=== PATIENT | male | born 1990 | race Caucasian/White ===

== ENCOUNTER 2018-08-19 14:18 | Emergency (ER) | payer MEDICAID ==
[2018-08-19 14:28] VITALS: O2SAT 100
--- NOTE | 2018-08-19 14:44 | ED PDOC ---
HPI: Chest Pain Time Seen by Provider: 08/19/18 14:35 Chief Complaint (Nursing): Chest Pain Chief Complaint (Provider): Chest Pain History Per: Patient History/Exam Limitations: no limitations Onset/Duration Of Symptoms: Days (x3) Current Symptoms Are (Timing): Still Present Additional Complaint(s): Patient is a 28 y/o male with no significant PMx who presents to the ED for evaluation of left-sided chest pain ongoing for the past three days. 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 Patient also reports of left-sided back pain and left arm weakness. Patient denies difficulty breathing and shortness of breath. PCP: None Provided Past Medical History Reviewed: Historical Data, Nursing Documentation, Vital Signs Vital Signs: Last Vital Signs Temp 97.7 F 08/19/18 14:23 Pulse 89 08/19/18 14:23 Resp 17 08/19/18 14:23 BP 141/73 08/19/18 14:23 Pulse Ox 100 08/19/18 14:23 - Medical History PMH: No Chronic Diseases - Surgical History Surgical History: No Surg Hx - Family History Family History: States: Unknown Family Hx - Social History Current smoker - smoking cessation education provided: Yes (socially) - Immunization History Hx Tetanus Toxoid Vaccination: No Hx Influenza Vaccination: No Hx Pneumococcal Vaccination: No - Home Medications Home Medications: Ambulatory Orders Medication Instructions Recorded Acetaminophen/Butalbital/Caf 1 tab PO 03/31/16 [Fioricet] Amoxicillin/Clavulanate [Augmentin 1 tab PO 03/31/16 875 MG-125 MG] Ibuprofen [Motrin] 600 mg PO TID PRN #30 tab 03/31/16 RX: Meclizine [Meclizine*] 25 mg PO TID #6 tab 03/31/16 RX: Ibuprofen [Motrin Tab] 600 mg PO Q8 PRN #30 tab 08/19/18 - Allergies Allergies/Adverse Reactions: Allergies Allergy/AdvReac Type Severity Reaction Status Date / Time No Known Allergies Allergy Verified 03/31/16 16:22 YANNI Risk Score for UA/NSTEMI - YANNI Risk Score Age > 64: NO 3 or more CAD Risk Factors: NO Known CAD (Stenosis greater than 50%): NO Aspirin use in past 7 days: NO Severe Angina: NO EKG ST changes greater than 0.5mm: NO Positive Cardiac Marker: NO YANNI Score: 0 Risk %: 5% Wells Criteria for PE - Wells Criteria for Pulmonary Embolism Clinical Signs and Symptoms of DVT: No P.E is #1 Diagnosis, or Equally Likely: No Heart Rate >100: No Immobilization at least 3 days;Surgery previous 4 weeks: No Previous, objectively diagnosed PE or DVT: No Hemoptysis: No Malignancy w/treatment within 6 months, or palliative: No Total Score: 0 Review of Systems ROS Statement: Except As Marked, All Systems Reviewed And Found Negative Cardiovascular: Positive for: Chest Pain (left-sided; sharp, burning, and vibrational) Respiratory: Negative for: Shortness of Breath Gastrointestinal: Negative for: Other (difficulty breathing) Musculoskeletal: Positive for: Arm Pain (left arm weakness), Back Pain (left- sided) Physical Exam - Reviewed Nursing Documentation Reviewed: Yes Vital Signs Reviewed: Yes - Physical Exam Appears: Positive for: Non-toxic, No Acute Distress Head Exam: Positive for: ATRAUMATIC, NORMAL INSPECTION, NORMOCEPHALIC Skin: Positive for: Normal Color, Warm, Dry Eye Exam: Positive for: EOMI, Normal appearance, PERRL ENT: Positive for: Normal ENT Inspection Neck: Positive for: Normal, Painless ROM, Supple Cardiovascular/Chest: Positive for: Regular Rate, Rhythm. Negative for: Murmur Respiratory: Positive for: Normal Breath Sounds. Negative for: Respiratory Dist ress Gastrointestinal/Abdominal: Positive for: Normal Exam, Soft. Negative for: Tenderness Back: Positive for: Normal Inspection. Negative for: L CVA Tenderness, R CVA Tenderness, Vertebral Tenderness Extremity: Positive for: Normal ROM. Negative for: Pedal Edema, Deformity Neurologic/Psych: Positive for: Alert, Oriented. Negative for: Motor/Sensory Deficits - Laboratory Results Result Diagrams: 08/19/18 15:00 08/19/18 15:00 - ECG ECG Rhythm: Positive for: Normal QRS, Normal ST Segment, Sinus Rhythm Rate: 99 O2 Sat by Pulse Oximetry: 100 (RA) Pulse Ox Interpretation: Normal Medical Decision Making Medical Decision Making: Time: 1441 Impression: Chest Pain DDx includes but not limited to ACS, PE, costochondritis, and musculoskeletal pain. r/o PNX. Plan: - EKG - BMP - Drug Screen, Urine - Troponin I - CBC - CXR - Masseur/Masseuse - reevaluation 1500 Patient is being signed out by me to Carolyn Mustafa MD pending Xray chest, labs, and reevaluation. ------ Scribe Attestation: Documented by Ant Roceh, acting as a scribe for Netta Carbajal MD. Provider Scribe Attestation: All medical record entries made by the Scribe were at my direction and personally dictated by me. I have reviewed the chart and agree that the record accurately reflects my personal performance of the history, physical exam, medical decision making, and the department course for this patient. I have also personally directed, reviewed, and agree with the discharge instructions and disposition. Scribe Attestation: Documented by Alis Jerez, acting as a scribe for Netta Carbajal MD. Provider Scribe Attestation: All medical record entries made by the Scribe were at my direction and personally dictated by me. I have reviewed the chart and agree that the record accurately reflects my personal performance of the history, physical exam, medical decision making, and the department course for this patient. I have also personally directed, reviewed, and agree with the discharge instructions and disposition. Disposition - Clinical Impression Clinical Impression: Chest pain - Patient ED Disposition Is Patient to be Admitted: Transfer of Care Counseled Patient/Family Regarding: Studies Performed, Diagnosis - Disposition Disposition: Transfer of Care Disposition Time: 15:00 Condition: STABLE Additional Instructions: PLEASE FOLLOW UP WITH YOUR DOCTOR THIS WEEK FOR FURTHER EVALUATION Prescriptions: RX: Ibuprofen [Motrin Tab] 600 mg PO Q8 PRN #30 tab PRN Reason: Pain, Moderate (4-7) Instructions: Chest Pain That Is Not Caused by the Heart (DC), Costochondritis (DC)
--- NOTE | 2018-08-19 15:10 | ED PDOC ---
- Laboratory Results Result Diagrams: 08/19/18 15:00 08/19/18 15:00 - ECG O2 Sat by Pulse Oximetry: 100 (RA) Medical Decision Making Medical Decision Makin:00 Patient is being signed out to me by Netta Carbajal MD pending ER workup and reassessment. 1600 Labs unremarkable Pt's repeat EKG normal CXR normal DW pt findings and plan of care. NSAIDs for possible costochondritis and followup pmd Scribe Attestation: Documented by Alis Jerez, acting as a scribe for Carolyn Mustafa MD. Provider Scribe Attestation: All medical record entries made by the Scribe were at my direction and personally dictated by me. I have reviewed the chart and agree that the record accurately reflects my personal performance of the history, physical exam, medical decision making, and the department course for this patient. I have also personally directed, reviewed, and agree with the discharge instructions and disposition Disposition Counseled Patient/Family Regarding: Studies Performed, Diagnosis, Need For Followup, Rx Given - Clinical Impression Clinical Impression: Chest pain, Headache - POA Present On Arrival: None - Disposition Disposition: Routine/Home Disposition Time: 16:46 Condition: STABLE Additional Instructions: PLEASE FOLLOW UP WITH YOUR DOCTOR THIS WEEK FOR FURTHER EVALUATION Prescriptions: Ibuprofen [Motrin Tab] 600 mg PO Q8 PRN #30 tab PRN Reason: Pain, Moderate (4-7) Instructions: Chest Pain That Is Not Caused by the Heart (DC), Costochondritis (DC)
[2018-08-19 15:12] LABS: BASO % 0.4 % (0.0-2.0); EOS # 0.1 K/uL (0.0-0.7); EOS % 1.7 % (0.0-4.0); LYMPH # 1.4 K/uL (1.0-4.3); LYMPH % 32.3 % (20.0-40.0); MEAN CELL VOLUME 85.7 fl (80.0-94.0); MEAN CORPUSCULAR HEMOGLOBIN 28.7 pg (27.0-31.0); MEAN CORPUSCULAR HGB CONC 33.5 g/dL (33.0-37.0); MONO # 0.6 K/uL (0.0-0.8); MONO % 12.7 % (0.0-10.0); NEUT # 2.4 K/uL (1.8-7.0); NEUT % 52.9 % (50.0-75.0); NRBC % 0.1 % (0.0-0.0); RBC 5.24 Mil/uL (4.40-5.90); RED CELL DISTRIBUTION WIDTH 12.6 % (11.5-14.5); WHITE BLOOD COUNT 4.5 K/uL (4.8-10.8)
[2018-08-19 15:22] LABS: BLOOD UREA NITROGEN 11 mg/dl (9-20); CALCIUM 10.1 mg/dL (8.4-10.2); GFR NON-AFRICAN AMERICAN > 60
[2018-08-19 15:50] LABS: BARBITURATES, UR NEGATIVE (NEGATIVE); BENZODIAZEPINES, UR NEGATIVE (NEGATIVE); OPIATES, UR NEGATIVE (NEGATIVE); PHENCYCLIDINE, UR NEGATIVE (NEGATIVE)
--- NOTE | 2018-08-19 15:56 | RAD ---
Date of service: 08/19/2018 HISTORY: chest pain COMPARISON: Chest radiograph dated 03/31/2016. TECHNIQUE: Chest PA and lateral FINDINGS: LUNGS: No active pulmonary disease. PLEURA: No significant pleural effusion identified. No pneumothorax apparent. CARDIOVASCULAR: No aortic atherosclerotic calcification present. Normal cardiac size. No pulmonary vascular congestion. OSSEOUS STRUCTURES: No significant abnormalities. VISUALIZED UPPER ABDOMEN: Normal. OTHER FINDINGS: None. IMPRESSION: No active disease.
[2018-08-19 17:42] VITALS: BP 137/83; RESP 18; TEMP 97.9
--- NOTE | 2018-08-20 09:10 | CARD ---
APPROVED REPORT Date of service: 08/19/2018 EKG Measurement Heart [id number] 118P43 [id number] <Conclusion> Normal sinus rhythm Normal ECG
--- NOTE | 2018-08-20 09:13 | CARD ---
APPROVED REPORT Date of service: 08/19/2018 EKG Measurement Heart [id number] [id number] <Conclusion> Sinus rhythm with marked sinus arrhythmia Normal Electrocardiogram
[2018-08-20 14:45] VITALS: PULSE 99
== END 2018-08-19 17:05 | disposition home or self-care (01) ==
LOC: H.ER 14:18
DX: R07.9 Chest pain, unspecified (principal)

== ENCOUNTER 2018-08-22 11:29 | Emergency (ER) | payer MEDICAID ==
[2018-08-22 11:39] VITALS: BP 135/82; PULSE 82; RESP 17; TEMP 98.5; O2SAT 99; BMI 22.4
--- NOTE | 2018-08-22 13:53 | ED PDOC ---
HPI: Chest Pain Time Seen by Provider: 08/22/18 12:13 Chief Complaint (Nursing): Chest Pain History Per: Patient eddy returns to the ED 4 days after initial evaluation for the same complaint. The left lower lateral chest wall started 5-6 days ago. He recalls now that he had to do someting heavy at work and since then has noticed pain. He is concerned that he also senses a numbness in the left upper chest. Today's pain has lasted 3-4 hours before he came to the ER. He noticed it when he woke up from sleep at 9am this morning. After his initial visit to the ER he was told to take ibuprofen 600mg as needed. He was seen by his PMD the next day who told him the same. He denies shortness of breath, nausea, vomiting, dizziness.) Past Medical History Reviewed: Historical Data, Nursing Documentation, Vital Signs Vital Signs: Last Vital Signs Temp 98.5 F 08/22/18 11:39 Pulse 82 08/22/18 11:39 Resp 17 08/22/18 11:39 BP 135/82 08/22/18 11:39 Pulse Ox 99 08/22/18 11:39 - Medical History PMH: No Chronic Diseases - Surgical History Surgical History: No Surg Hx - Family History Family History: States: Unknown Family Hx - Living Arrangements Living Arrangements: With Family - Social History Current smoker - smoking cessation education provided: No Alcohol: None - Immunization History Hx Tetanus Toxoid Vaccination: No Hx Influenza Vaccination: No Hx Pneumococcal Vaccination: No - Home Medications Home Medications: Ambulatory Orders Medication Instructions Recorded Acetaminophen/Butalbital/Caf 1 tab PO 03/31/16 [Fioricet] Amoxicillin/Clavulanate [Augmentin 1 tab PO 03/31/16 875 MG-125 MG] Ibuprofen [Motrin] 600 mg PO TID PRN #30 tab 03/31/16 Meclizine [Meclizine*] 25 mg PO TID #6 tab 03/31/16 Ibuprofen [Motrin Tab] 600 mg PO Q8 PRN #30 tab 08/19/18 - Allergies Allergies/Adverse Reactions: Allergies Allergy/AdvReac Type Severity Reaction Status Date / Time No Known Allergies Allergy Verified 03/31/16 16:22 YANNI Risk Score for UA/NSTEMI - YANNI Risk Score Age > 64: NO 3 or more CAD Risk Factors: NO Known CAD (Stenosis greater than 50%): NO Aspirin use in past 7 days: NO Severe Angina: NO EKG ST changes greater than 0.5mm: NO Positive Cardiac Marker: NO YANNI Score: 0 Risk %: 5% Review of Systems ROS Statement: Except As Marked, All Systems Reviewed And Found Negative Cardiovascular: Positive for: Chest Pain. Negative for: Palpitations, Orthopnea, Paroxysmal Noc. Dyspnea, Light Headedness Respiratory: Negative for: Cough, Shortness of Breath Physical Exam - Reviewed Nursing Documentation Reviewed: Yes Vital Signs Reviewed: Yes - Physical Exam Appears: Positive for: Well, Non-toxic, No Acute Distress Head Exam: Positive for: ATRAUMATIC, NORMAL INSPECTION, NORMOCEPHALIC Skin: Positive for: Normal Color, Warm. Negative for: Rash (near the location of pain) Eye Exam: Positive for: Normal appearance, EOMI ENT: Positive for: Normal ENT Inspection Neck: Positive for: Normal Cardiovascular/Chest: Positive for: Regular Rate, Rhythm, Chest Non Tender. Negative for: Tachycardia, Friction Rub, Irregularly Irregular Respiratory: Positive for: CNT, Normal Breath Sounds Gastrointestinal/Abdominal: Positive for: Normal Exam, Soft Back: Positive for: Normal Inspection Extremity: Positive for: Normal ROM Neurologic/Psych: Positive for: Alert, Oriented - ECG O2 Sat by Pulse Oximetry: 99 Disposition - Clinical Impression Clinical Impression: Chest wall pain - Patient ED Disposition Is Patient to be Admitted: No Doctor Will See Patient In The: Office Counseled Patient/Family Regarding: Diagnosis, Need For Followup, Rx Given - Disposition Referrals: Non [facility] Provider, [Primary Care Provider] - Disposition: Hospice - Medical Facility Disposition Time: 12:45 Condition: STABLE Additional Instructions: Patient reassured that the pain is likely due to a musculoskeletal etiology and that it should improve with time. He is advised to return to the ER If he has new anginal type symptoms Instructions: Chest Pain That Is Not Caused by the Heart (DC) Forms: [employer] (Japanese), [facility] School/Work Excuse
== END 2018-08-22 13:30 | disposition home or self-care (01) ==
LOC: H.ER 11:29 → SUPCPDRO 11:29 → H.ER 13:30
DX: R07.9 Chest pain, unspecified (principal)

== ENCOUNTER 2018-10-20 10:51 | Emergency (ER) | payer MEDICAID ==
[2018-10-20 10:55] VITALS: BMI 23.1
[2018-10-20] MEDS ORDERED: Sodium Chloride 0.9% 1,000 ML IV STA (11:57)
[2018-10-20 12:43] LABS: BASO % 0.1 % (0.0-2.0); HEMOGLOBIN 13.8 g/dL (12.0-18.0); LYMPH # 0.8 K/uL (1.0-4.3); LYMPH % 6.3 % (20.0-40.0); MEAN CELL VOLUME 86.5 fl (80.0-94.0); MEAN CORPUSCULAR HEMOGLOBIN 28.3 pg (27.0-31.0); MEAN CORPUSCULAR HGB CONC 32.6 g/dL (33.0-37.0); MEAN PLATELET VOLUME 8.4 fl (7.2-11.7); MONO # 1.1 K/uL (0.0-0.8); MONO % 9.1 % (0.0-10.0); NEUT # 10.2 K/uL (1.8-7.0); NEUT % 84.5 % (50.0-75.0); PLATELET COUNT 225 K/uL (130-400); RBC 4.87 Mil/uL (4.40-5.90); RED CELL DISTRIBUTION WIDTH 12.8 % (11.5-14.5); WHITE BLOOD COUNT 12.1 K/uL (4.8-10.8)
[2018-10-20 12:57] LABS: ALB/GLOB RATIO 1.4 (1.0-2.1); ALBUMIN 4.5 g/dL (3.5-5.0); ALT/SGPT 37 U/L (21-72); AST/SGOT 27 U/L (17-59); BLOOD UREA NITROGEN 12 mg/dl (9-20); CALCIUM 9.3 mg/dL (8.4-10.2); GFR NON-AFRICAN AMERICAN > 60
[2018-10-20 13:06] LABS: BASOPHIL 1 % (0-2); LYMPHOCYTE 7 % (20-50); MONOCYTE 10 % (0-10); NEUTROPHIL 82 % (42-75); PLATELET ESTIMATE NORMAL (NORMAL); TOTAL CELLS COUNTED 100
--- NOTE | 2018-10-20 13:19 | ED PDOC ---
HPI: Headache Time Seen by Provider: 10/20/18 11:24 Chief Complaint (Nursing): Headache Chief Complaint (Provider): headache History Per: Patient, Family History/Exam Limitations: no limitations Onset/Duration Of Symptoms: Hrs Current Symptoms Are (Timing): Still Present Severity: Mild Additional Complaint(s): Pt. is a 28 y/o healthy Male who felt well yesterday, went to bed as per usual and awoke at 1 am with headache and tactile fever which continued prompting visit. Headache described as diffuse, gradual in onset. Pt. noted to be feb rile here with temp >101. Pt. reports mild sore throat but otherwise feels well, no abd. pain, no cough, no n/v. Past Medical History Vital Signs: Last Vital Signs Temp 101.4 F H 10/20/18 10:55 Pulse 109 H 10/20/18 10:55 Resp 17 10/20/18 10:55 BP 119/80 10/20/18 10:55 Pulse Ox 98 10/20/18 10:55 - Medical History PMH: No Chronic Diseases - Family History Family History: States: Unknown Family Hx - Immunization History Hx Tetanus Toxoid Vaccination: No Hx Influenza Vaccination: No Hx Pneumococcal Vaccination: No - Home Medications Home Medications: Ambulatory Orders Medication Instructions Recorded Acetaminophen/Butalbital/Caf 1 tab PO 03/31/16 [Fioricet] Amoxicillin/Clavulanate [Augmentin 1 tab PO 03/31/16 875 MG-125 MG] Ibuprofen [Motrin] 600 mg PO TID PRN #30 tab 03/31/16 Meclizine [Meclizine*] 25 mg PO TID #6 tab 03/31/16 Ibuprofen [Motrin Tab] 600 mg PO Q8 PRN #30 tab 08/19/18 - Allergies Allergies/Adverse Reactions: Allergies Allergy/AdvReac Type Severity Reaction Status Date / Time No Known Allergies Allergy Verified 10/20/18 11:27 Physical Exam - Reviewed Vital Signs Reviewed: Yes - Physical Exam Appears: Positive for: Well, Non-toxic Head Exam: Positive for: ATRAUMATIC Skin: Positive for: Normal Color, Warm, Dry Eye Exam: Positive for: Normal appearance ENT: Positive for: Normal ENT Inspection. Negative for: Nasal Congestion Neck: Positive for: Normal, Painless ROM, Supple Cardiovascular/Chest: Positive for: Regular Rate, Rhythm Respiratory: Positive for: Normal Breath Sounds. Negative for: Rales, Rhonchi Gastrointestinal/Abdominal: Positive for: Normal Exam, Soft. Negative for: Tenderness Neurological/Psych: Positive for: Awake, Alert - Laboratory Results Result Diagrams: 10/20/18 12:38 10/20/18 12:38 Lab Results: Total Bilirubin 1.0 mg/dl (0.2-1.3) 10/20/18 12:38 AST 27 U/L (17-59) 10/20/18 12:38 ALT 37 U/L (21-72) 10/20/18 12:38 Alkaline Phosphatase 93 U/L (38-126) 10/20/18 12:38 Total Protein 7.8 G/DL (6.3-8.2) 10/20/18 12:38 Albumin 4.5 g/dL (3.5-5.0) 10/20/18 12:38 Globulin 3.3 gm/dL (2.2-3.9) 10/20/18 12:38 Albumin/Globulin Ratio 1.4 (1.0-2.1) 10/20/18 12:38 - ECG O2 Sat by Pulse Oximetry: 98 Medical Decision Making Medical Decision Making: IV access established cbc, cmp, flu, strep IVF given, IV Toradol given. ON reassessment, pt. feeling much better, no further headache. Pt. is hungry, eating meal. Case endorsed to [facility] pending strep Disposition - Clinical Impression Clinical Impression: Acute headache, Fever, Pharyngitis - Patient ED Disposition Is Patient to be Admitted: Transfer of Care (to [facility], pending strep) Counseled Patient/Family Regarding: Studies Performed, Diagnosis - Disposition Disposition Time: 14:50 Condition: STABLE Instructions: Acute Headache (ED) Forms: [employer] (Botswanan)
[2018-10-20 15:47] VITALS: BP 107/55; RESP 18; O2SAT 97
[2018-10-20 18:53] VITALS: PULSE 90; TEMP 99.5
== END 2018-10-20 18:48 | disposition home or self-care (01) ==
LOC: H.ER 10:51
DX: R51 Headache (principal); R50.9 Fever, unspecified; J02.9 Acute pharyngitis, unspecified
CPT/HCPCS: 80053; 85025; 87430; 87804; 96374; 96375; 99285; J1885; J2765; J7030